=== PATIENT | female | born 1975 | race Caucasian/White ===

== ENCOUNTER 2018-02-11 17:16 | Emergency (ER) | payer SELFPAY ==
[~2018-02-11] VITALS: Ht 154.9 cm; Wt 90.7 kg
[~2018-02-11 17:16] MED LIST: DIAZ5TAB PO; HYDR-3164 PO
[2018-02-11] MEDS ORDERED: MORPHINE SULFATE 10 MG/ML VIAL. IM ONE (17:45)
[2018-02-11 17:51] VITALS: BP 164/92
--- NOTE | 2018-02-11 17:52 | PHYS DOC ---
Past Medical History Past Medical History: Diabetes-Type II, Hypertension, Kidney Stone Past Surgical History: Alcohol Use: Rarely Drug Use: None Adult General Chief Complaint Chief Complaint: ANKLE PROBLEM HPI HPI Patient is a 42 year old female with history of kidney stones, hypertension, who presents today complaining of moderate sharp constant left lateral ankle pain that began on Saturday which is 3 days ago after she fell. Patient states her own dog tripped her on Saturday before she fell. She states she was seen at [facility] had x-rays of the left ankle which had questionable fracture. She states she was supposed to call [facility] to get over read results. She states she called them and she was told to go through medical records to get her documents which may take up to 5 days. She states she has continued to have the pain despite being on hydrocodone. She states the hydrocodone is not working for her. She states she called [facility] orthopedic doctor and they told her the office is closed until next week on Saturday. Review of Systems Review of Systems Constitutional: Denies fever or chills [] Musculoskeletal: Left ankle pain Integument: Denies rash or skin lesions [] Neurologic: Denies headache, focal weakness or sensory changes [] All other systems were reviewed and found to be within normal limits, except as documented in this note. Current Medications Current Medications Current Medications Medications (Trade) Dose Ordered Sig/Andreia Start Time Stop Time Status Last Admin Dose Admin Morphine Sulfate (Morphine Sulfate) 5 mg 1X ONCE 02/11/18 17:45 02/11/18 17:46 DC 02/11/18 18:00 5 MG Allergies Allergies Allergies Coded Allergies Type Severity Reaction Last Updated Verified butalbital Allergy Severe Anaphylaxis 01/22/17 Yes ketorolac Allergy Severe Anaphylaxis 01/22/17 Yes nifedipine Allergy Severe Anaphylaxis 01/22/17 Yes propranolol Allergy Intermediate Anaphylaxis 01/22/17 Yes Physical Exam Physical Exam Constitutional: Well developed, well nourished, no acute distress, non-toxic appearance. [] Skin: Warm, dry, no erythema, no rash. [] Back: No tenderness, no CVA tenderness. [] Extremities: Left ankle with no obvious deformity, trace amount of soft tissue swelling noted on the left lateral ankle. Tenderness on palpation of the ankle diffusely. Patient unable to tolerate any range of motion to the ankle due to pain. +2 left pedal pulse. Cap refill less than 2 seconds to the left toes. Sensation intact to the left lower extremity. Neurologic: Alert and oriented X 3, normal motor function, normal sensory function, no focal deficits noted. [] Psychologic: Affect normal, judgement normal, mood normal. [] Current Patient Data Vital Signs Vital Signs Date Time Temp Pulse Resp B/P (MAP) Pulse Ox O2 Delivery O2 Flow Rate FiO2 02/11/18 17:51 98.6 108 18 164/92 (116) 97 Room Air 98.6 EKG EKG [] Radiology/Procedures Radiology/Procedures []PROCEDURE: ANKLE LEFT 3V History: Trauma, fall, lateral ankle pain. Comparison: None. Findings: AP, lateral, and oblique views of the left ankle. No acute fracture or dislocation is identified. Minimal lateral ankle soft tissue swelling is seen. Impression: No acute osseous traumatic injury identified. Electronically signed by: Gabriele Campos MD (02/11/2018 6:17 PM) [facility] DICTATED and SIGNED BY: GABRIELE CAMPOS MD DATE: 02/11/181815 Course & Med Decision Making Course & Med Decision Making Pertinent Labs and Imaging studies reviewed. (See chart for details) This is a 42-year-old female patient presenting to the ED today complaining of left ankle pain that began on Saturday. She was already seen at [facility], had x-rays done, she states she had a questionable fracture. We'll send him with hydrocodone which she states it's not helping with her pain. Also taking ibuprofen 600 with no relief. Left ankle x-rays interpreted by radiologist are negative for any acute findings. Patient already has an Mirza bandage and air cast for the ankle. Ice elevation encouraged. Follow-up with orthopedic doctor next week. Dragon Disclaimer Dragon Disclaimer This electronic medical record was generated, in whole or in part, using a voice recognition dictation system. Departure Departure Impression: Primary Impression: Fall from standing Additional Impression: Left ankle sprain Disposition: 01 HOME, SELF-CARE Condition: STABLE Referrals: NO PCP (PCP) ESTHER HICKS MD Follow-up in the next 7 days Patient Instructions: Ankle Sprain Additional Instructions: You were evaluated in the emergency room for left ankle pain, and left ankle x- rays are negative for any acute findings. Continue to ice and elevate the extremity. Take the prescribed medications as ordered. Follow-up with your own doctor or the provided orthopedic doctor next week Scripts Diclofenac Sodium (VOLTAREN) 100 Gm Gel..gram. 1 GM TP QID, #100 GM 2 Refills Prov: THOMASJONATHON BURROWS JOY 02/11/18 Problem Qualifiers Primary Impression: Fall from standing Encounter type: subsequent encounter Qualified Codes: W19.XXXD - Unspecified fall, subsequent encounter Additional Impression: Left ankle sprain Encounter type: initial encounter Involved ligament of ankle: unspecified ligament Qualified Codes: S93.402A - Sprain of unspecified ligament of left ankle, initial encounter THOMASJONATHON BURROWS UMBRELLA MENDER Feb 11, 2018 17:51
--- NOTE | 2018-02-11 18:20 | RAD ---
History: Trauma, fall, lateral ankle pain. Comparison: None. Findings: AP, lateral, and oblique views of the left ankle. No acute fracture or dislocation is identified. Minimal lateral ankle soft tissue swelling is seen. Impression: No acute osseous traumatic injury identified. Electronically signed by: Gabriele Campos MD (02/11/2018 6:17 PM) [facility]
[2018-02-11] MEDS ORDERED: DICL100G18 TP (18:35)
== END 2018-02-11 18:42 | disposition home or self-care (01) ==
LOC: ER 17:16
DX: S93.492A Sprain of other ligament of left ankle, initial encounter (principal); E11.9 Type 2 diabetes mellitus without complications; I10 Essential (primary) hypertension; Z87.442 Personal history of urinary calculi; Z98.890 Other specified postprocedural states; Z88.8 Allergy status to other drugs, medicaments and biological substances; W01.0XXA Fall on same level from slipping, tripping and stumbling without subsequent striking against object, initial encounter; Y93.89 Activity, other specified; Y92.89 Other specified places as the place of occurrence of the external cause; Y99.8 Other external cause status
CPT/HCPCS: 73610; 96372; 99283; J2270

== ENCOUNTER 2018-07-19 14:58 | Emergency (ER) | payer SELFPAY ==
[~2018-07-19] VITALS: Ht 154.9 cm; Wt 95.3 kg
[~2018-07-19 14:58] MED LIST changes: +DICL100G18 TP
[2018-07-19 15:08] VITALS: BP 143/105
[2018-07-19] MEDS ORDERED: LIDOCAINE 1% Multi-Dose 20 ML VIAL. INJ ONE (15:45)
[2018-07-19] MEDS ORDERED: HYDROcodone/APAP 5/325MG 1 TAB TABLET PO ONE (15:45)
[2018-07-19] MEDS ORDERED: CEPH-264 PO (15:56)
[2018-07-19] MEDS ORDERED: HYDR-3164 PO (15:56)
[2018-07-19] MEDS ORDERED: SULF1TAB24 PO (15:56)
--- NOTE | 2018-07-19 16:19 | PHYS DOC ---
Past Medical History Past Medical History: Diabetes-Type II, Hypertension, Kidney Stone Past Surgical History: Alcohol Use: Rarely Drug Use: None Adult General Chief Complaint Chief Complaint: ABSCESS HPI HPI 43-year-old female presents to ER with complaints of right groin abscess which is been gradually worsening over the past couple of days- she states onset was one week ago. She denies fever or chills. She denies urinary or vaginal symptoms. She reports she's had similar abscess in left groin which required an I&D. 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 She reports increased pain with walking d/t abd fold rubbing on wound. She reports she has had some swelling in rt labia- denies pain currently in labias/vagina. Review of Systems Review of Systems Constitutional: Denies fever or chills [] Respiratory: Denies cough or shortness of breath [] Cardiovascular: No additional information not addressed in HPI [] GI: Denies abdominal pain, nausea, vomiting, bloody stools or diarrhea [] : Denies dysuria or hematuria. Denies vaginal sxs Musculoskeletal: Denies back pain. Rt groin pain- denies pain radiating down rt leg Integument: Reports abscess rt groin Neurologic: Denies headache, focal weakness or sensory changes [] Endocrine: Denies polyuria or polydipsia [] All other systems were reviewed and found to be within normal limits, except as documented in this note. Current Medications Current Medications Current Medications Medications (Trade) Dose Ordered Sig/Andreia Start Time Stop Time Status Last Admin Dose Admin Acetaminophen/ Hydrocodone Bitart (Lortab 5/325) 1 tab 1X ONCE 07/19/18 15:45 07/19/18 15:46 DC 07/19/18 15:53 1 TAB Lidocaine HCl (Lidocaine 1% 20ml Vial) 20 ml 1X ONCE 07/19/18 15:45 07/19/18 15:46 DC 07/19/18 16:03 20 ML Allergies Allergies Allergies Coded Allergies Type Severity Reaction Last Updated Verified butalbital Allergy Severe Anaphylaxis 01/22/17 Yes ketorolac Allergy Severe Anaphylaxis 01/22/17 Yes nifedipine Allergy Severe Anaphylaxis 01/22/17 Yes shellfish derived Allergy Severe Anaphylaxis 07/19/18 Yes propranolol Allergy Intermediate Anaphylaxis 01/22/17 Yes Physical Exam Physical Exam Constitutional: Well developed, well nourished, no acute distress, non-toxic appearance. [] HENT: Normocephalic, atraumatic, oropharynx moist, no oral exudates, nose normal. [] Eyes: Pupils equal, conjunctiva normal, no discharge. [] Neck: Normal range of motion, no tenderness, supple, no stridor. [] Cardiovascular:Heart rate regular Lungs & Thorax: Bilateral breath sounds clear to auscultation [] Abdomen: Bowel sounds normal, soft/obese, no tenderness : Abscess rt groin with induration/fluctuation- tender on palp. Rt labia induration which pt reports is not acute/nontender. No rash Skin: Warm, dry, no rash. [] Back: No tenderness, no CVA tenderness. [] Extremities: No tenderness, no cyanosis, no clubbing, ROM intact, no edema. 2+ dorsalis pedis/posterior tibial. Steady unassisted gait Neurologic: Alert and oriented X 3, normal motor function, normal sensory function, no focal deficits noted. [] Psychologic: Affect normal, judgement normal, mood normal. [] Abscess Incision and Drainage with irrigation by me: 1610 Location: Rt groin/perigenital area Anesthesia: Local 1% Lidocaine 2 mL Technique: #11 Irrigated. Disrupted loculations w/ instrumentation- moderate amt of purulent/serosanguineous drainage Packin/4" iodoform Complications: Neurovascularly intact post procedure- steady unassisted gait. 2+ bilat. dorsalis pedis Pt tolerated procedure well. 48 hour wound check. Scar minimization instructions given. Current Patient Data Vital Signs Vital Signs Date Time Temp Pulse Resp B/P (MAP) Pulse Ox O2 Delivery O2 Flow Rate FiO2 07/19/18 15:53 20 95 Room Air 07/19/18 15:01 98.1 99 143/105 (118) 98.1 EKG EKG [] Radiology/Procedures Radiology/Procedures [] Course & Med Decision Making Course & Med Decision Making Patient was evaluated in the ER for complaints of right groin abscess. Patient was provided with dose of pain medication while in the ER and had I&D done. Patient reported improved pain following I&D- with drainage she had improvement in swelling at sore site. She remained PMS intact in bilateral lower extremities without incontinence of bowel or bladder. Patient denied any numbness or tingling. Patient had packing placed in the incision and wound care education provided. Patient was advised she needed wound reevaluation in 24 hours for wound recheck as well as packing removal. She was educated on warm compress application. Discussed discharge plan with prescriptions for Keflex and Bactrim DS. Patient will also be provided with pain medication prescription and she was advised on continued use of ibuprofen as needed. Will provide patient with community clinic resource sheet for follow-up purposes. Education provided on signs and symptoms to return to ER for an discharge instructions were discussed. Patient advised if she was unable to get into a clinic she should return to the ER for wound recheck. Pt was encouraged to keep monitoring her BS with hx of DM- she had reported BSs have been stable with last A1c 5.2. Dragon Disclaimer Dragon Disclaimer This electronic medical record was generated, in whole or in part, using a voice recognition dictation system. Departure Departure Impression: Primary Impression: Abscess Disposition: 01 HOME, SELF-CARE Condition: STABLE Referrals: NO PCP (PCP) Patient Instructions: Abscess, Incision and Drainage Additional Instructions: Warm compress to affected area 3-4 times a day. Plenty of fluids. Monitor wound for signs of worsening infection. You need to have the wound reevaluated in 24 hours for packing removal and possibly repacking. Ibuprofen as directed on container as needed for pain relief. Take prescriptions as prescribed and if taking [place] tablets do not drink alcohol or drive. Scripts Cephalexin (KEFLEX) 500 Mg Capsule 1 CAP PO BID, #14 CAP 0 Refills Prov: CHERIE DOSS APRN 07/19/18 Hydrocodone/Apap 5-325 (NORCO 5-325 TABLET) 1 Each Tablet 1 TAB PO PRN Q6HRS PRN for PAIN, #10 TAB 0 Refills No drinking alcohol or driving while taking this medication Prov: CHERIE DOSS APRN 07/19/18 Sulfamethoxazole/Trimethoprim (BACTRIM DS TABLET) 1 Each Tablet 1 TAB PO BID, #14 TAB 0 Refills Prov: CHERIE DOSS APRN 07/19/18 CHERIE DOSS APRN Jul 19, 2018 16:19
== END 2018-07-19 16:32 | disposition home or self-care (01) ==
LOC: ER 14:58
DX: L02.214 Cutaneous abscess of groin (principal); E11.9 Type 2 diabetes mellitus without complications; I10 Essential (primary) hypertension; Z98.890 Other specified postprocedural states; Z88.8 Allergy status to other drugs, medicaments and biological substances; Z91.013 Allergy to seafood
CPT/HCPCS: 10060; 87070; 87071; 87075; 99284

== ENCOUNTER 2018-07-20 14:32 | Emergency (ER) | payer SELFPAY ==
[~2018-07-20] VITALS: Ht 154.9 cm; Wt 95.3 kg
[~2018-07-20 14:32] MED LIST changes: +CEPH-264 PO; +SULF1TAB24 PO
[2018-07-20 14:59] VITALS: BP 162/92
--- NOTE | 2018-07-20 16:04 | PHYS DOC ---
Past Medical History Past Medical History: Diabetes-Type II, Hypertension, Kidney Stone Past Surgical History: Alcohol Use: Rarely Drug Use: None Adult General Chief Complaint Chief Complaint: WOUND CHECK HPI HPI 43-year-old female returns to the ER for wound reevaluation in her right groin. This provider seen the patient yesterday and performed an I&D of abscess in rt groin and started pt on Bactrim. Pt reports pain improved Review of Systems Review of Systems Constitutional: Denies fever or chills [] Respiratory: Denies cough or shortness of breath [] Cardiovascular: No additional information not addressed in HPI [] GI: Denies abdominal pain, nausea, vomiting, bloody stools or diarrhea [] : Denies urinary sxs Musculoskeletal: Denies back pain. Reports rt groin/upper rt leg pain- denies swelling in extremity or skin discoloration Integument: Reports wound rt groin where I&D done yest. Neurologic: Denies focal weakness or sensory changes- reports has diffuse AQU[place] mild in nature- denies any vision changes/dizziness Endocrine: Denies polyuria or polydipsia [] All other systems were reviewed and found to be within normal limits, except as documented in this note. Allergies Allergies Allergies Coded Allergies Type Severity Reaction Last Updated Verified butalbital Allergy Severe Anaphylaxis 01/22/17 Yes ketorolac Allergy Severe Anaphylaxis 01/22/17 Yes nifedipine Allergy Severe Anaphylaxis 01/22/17 Yes shellfish derived Allergy Severe Anaphylaxis 07/19/18 Yes propranolol Allergy Intermediate Anaphylaxis 01/22/17 Yes Physical Exam Physical Exam Constitutional: Well developed, well nourished, no acute distress, non-toxic appearance. [] HENT: Normocephalic, atraumatic, oropharynx moist Eyes: Pupils equal, conjunctiva normal, no discharge. [] Neck: Normal range of motion, supple Cardiovascular:Heart rate regular Lungs & Thorax: Resp. equal/nonlabored Abdomen: Bowel sounds normal, soft, no tenderness Skin: Warm, dry, no erythema, no rash. [] Back: Full ROM Extremities: No cyanosis, no clubbing, ROM intact, no edema. 2+ femoral rt side. I&D site rt groin with packing in place- possible reaction to adhesive in rt groin with redness along site where tape was. Abscess site is soft with no fluctuation. Induration surround wound much improved from yesterday's exam. 2+ dorsalis pedis no pedal edema bilat. Neurologic: Alert and oriented X 3, normal motor function, normal sensory function, no focal deficits noted. [] Psychologic: Affect normal, judgement normal, mood normal. [] Current Patient Data Vital Signs Vital Signs Date Time Temp Pulse Resp B/P (MAP) Pulse Ox O2 Delivery O2 Flow Rate FiO2 07/20/18 14:59 98.5 89 17 162/92 (115) 99 Room Air 98.5 EKG EKG [] Radiology/Procedures Radiology/Procedures [] Course & Med Decision Making Course & Med Decision Making Patient presented to the ER for wound re-evaluation. Patient was seen yesterday in the ER and had I&D with packing placement. Patient was afebrile during this ER visit and in no visible distress. Patient had steady unassisted gait. Patient reports her pain in right groin at abscess site much improved following procedure yesterday. Packing was easily removed no active bleeding or purulent drainage from site. Wound appears much improved from yesterday's presentation. Patient is PMS intact in bilateral lower extremities with full range of motion. Advised patient to continue Bactrim prescription as prescribed. Patient advised on continued application of warm compresses to right groin. Patient advised on use of Tylenol and or her prescribed [place] which she received yesterday with discharge paperwork. Patient was in no visible distress at time of discharge discussion. Patient advised on follow-up with her primary care doctor with any concerns or return to the ER for reevaluation. Dragon Disclaimer Dragon Disclaimer This electronic medical record was generated, in whole or in part, using a voice recognition dictation system. Departure Departure Impression: Primary Impression: Encounter for wound re-check Disposition: HOME, SELF-CARE Condition: STABLE Referrals: NO PCP (PCP) Patient Instructions: Wound Care, [id number], Wound Check Additional Instructions: Follow-up with your primary care physician for further care and wound reevaluation. Finish antibiotic as prescribed and take entire prescription. CHERIE DOSS APRN Jul 20, 2018 16:04
== END 2018-07-20 16:09 | disposition home or self-care (01) ==
LOC: ER 14:32
DX: Z48.01 Encounter for change or removal of surgical wound dressing (principal); E11.9 Type 2 diabetes mellitus without complications; I10 Essential (primary) hypertension; Z98.890 Other specified postprocedural states; Z87.442 Personal history of urinary calculi; Z88.8 Allergy status to other drugs, medicaments and biological substances; Z91.013 Allergy to seafood
CPT/HCPCS: 99283

== ENCOUNTER 2021-07-26 08:29 | Emergency (ER) | payer MEDICAID ==
[~2021-07-26] VITALS: Ht 154.9 cm; Wt 84.1 kg
[~2021-07-26 08:29] MED LIST changes: -DICL100G18 TP; +DICL100G54 TP
--- NOTE | 2021-07-26 08:39 | PHYS DOC ---
Past Medical History Past Medical History: Diabetes-Type II, Hypertension, Kidney Stone Past Surgical History: Smoking Status: Current Every Day Smoker Alcohol Use: Rarely Drug Use: None Adult General Chief Complaint Chief Complaint: NAUSEA/VOMITING/DIARRHEA HPI HPI Patient is a 46 year old female presenting to the emergency department for evaluation of abdominal pain nausea vomiting and diarrhea that has been going on for approximately 5 to 6 days. She says she has pain in her epigastrium and right upper quadrant and has had nonbloody nonbilious emesis. She said she started recently having diarrhea. She denies any recent travel or chemotherapy or antibiotic use she said she was seen at [facility] emergency department and was told that she has sludge and stones in her gallbladder and was referred to outpatient surgery but has not called for follow-up. Patient says she has had 3 the past but no other abdominal surgeries. She has active emesis and appears to be in significant discomfort while I am examining her. Review of Systems Review of Systems Constitutional: Denies fever or chills [] Eyes: Denies change in visual acuity, redness, or eye pain [] HENT: Denies nasal congestion or sore throat [] Respiratory: Denies cough or shortness of breath [] Cardiovascular: No additional information not addressed in HPI [] GI: + abdominal pain, nausea, vomiting, diarrhea [] : Denies dysuria or hematuria [] Musculoskeletal: Denies back pain or joint pain [] Integument: Denies rash or skin lesions [] Neurologic: Denies headache, focal weakness or sensory changes [] All other systems were reviewed and found to be within normal limits, except as documented in this note. Current Medications Current Medications Current Medications Medications (Trade) Dose Ordered Sig/Andreia Start Time Stop Time Status Last Admin Dose Admin Diphenhydramine HCl (Benadryl) 50 mg 1X ONCE 07/26/21 09:30 07/26/21 09:31 DC 07/26/21 09:28 50 MG Info (CONTRAST GIVEN -- Rx MONITORING) 1 each PRN DAILY PRN 07/26/21 09:00 07/28/21 08:59 Iohexol (Omnipaque 300 Mg/ml) 75 ml 1X ONCE 07/26/21 09:30 07/26/21 09:31 DC 07/26/21 09:30 75 ML Morphine Sulfate (Morphine Sulfate) 4 mg 1X PRN 07/26/21 08:45 07/26/21 09:00 4 MG Ondansetron HCl (Zofran) 8 mg 1X ONCE 07/26/21 08:45 07/26/21 08:51 DC 07/26/21 08:58 8 MG Pantoprazole Sodium (PROTONIX VIAL for IV PUSH) 40 mg 1X ONCE 07/26/21 10:45 07/26/21 10:46 DC 07/26/21 11:08 40 MG Prochlorperazine Edisylate (Compazine) 10 mg 1X ONCE 07/26/21 09:30 07/26/21 09:31 DC 07/26/21 09:29 10 MG Sodium Chloride 1,000 ml @ 1,000 mls/hr 1X ONCE 07/26/21 08:45 07/26/21 09:44 DC 07/26/21 08:58 1,000 MLS/HR Allergies Allergies Allergies Coded Allergies Type Severity Reaction Last Updated Verified butalbital Allergy Severe Anaphylaxis 07/26/21 Yes ketorolac Allergy Severe Anaphylaxis 07/26/21 Yes nifedipine Allergy Severe Anaphylaxis 07/26/21 Yes shellfish derived Allergy Severe Anaphylaxis 07/26/21 Yes propranolol Allergy Intermediate Anaphylaxis 07/26/21 Yes Physical Exam Physical Exam Constitutional: Well developed, well nourished, no acute distress, non-toxic appearance. [] HENT: Normocephalic, atraumatic, bilateral external ears normal, oropharynx moist, no oral exudates, nose normal. [] Eyes: PERRLA, EOMI, conjunctiva normal, no discharge. [] Neck: Normal range of motion, no tenderness, supple, no stridor. [] Cardiovascular:Heart rate regular rhythm, no murmur [] Lungs & Thorax: Bilateral breath sounds clear to auscultation [] Abdomen: Bowel sounds normal, soft, + epigastric and RUQ ttp. No rebound or guarding. Skin: Warm, dry, no erythema, no rash. [] Back: No tenderness, no CVA tenderness. [] Extremities: No tenderness, no cyanosis, no clubbing, ROM intact, no edema. [] Neurologic: Alert and oriented X 3, normal motor function, normal sensory function, no focal deficits noted. [] Current Patient Data Vital Signs Vital Signs Date Time Temp Pulse Resp B/P (MAP) Pulse Ox O2 Delivery O2 Flow Rate FiO2 07/26/21 11:07 90 14 139/85 (103) 99 07/26/21 10:19 Room Air 07/26/21 08:30 97.7 97.7 Lab Values Laboratory Tests Test 07/26/21 08:45 07/26/21 11:05 White Blood Count 10.9 x10^3/uL (4.0-11.0) Red Blood Count 4.82 x10^6/uL (3.50-5.40) Hemoglobin 14.9 g/dL (12.0-15.5) Hematocrit 43.8 % (36.0-47.0) Mean Corpuscular Volume 91 fL (79-100) Mean Corpuscular Hemoglobin 31 pg (25-35) Mean Corpuscular Hemoglobin Concent 34 g/dL (31-37) Red Cell Distribution Width 14.8 % (11.5-14.5) H Platelet Count 349 x10^3/uL (140-400) Neutrophils (%) (Auto) 71 % (31-73) Lymphocytes (%) (Auto) 22 % (24-48) L Monocytes (%) (Auto) 5 % (0-9) Eosinophils (%) (Auto) 1 % (0-3) Basophils (%) (Auto) 1 % (0-3) Neutrophils # (Auto) 7.7 x10^3/uL (1.8-7.7) Lymphocytes # (Auto) 2.4 x10^3/uL (1.0-4.8) Monocytes # (Auto) 0.6 x10^3/uL (0.0-1.1) Eosinophils # (Auto) 0.1 x10^3/uL (0.0-0.7) Basophils # (Auto) 0.1 x10^3/uL (0.0-0.2) Sodium Level 138 mmol/L (136-145) Potassium Level 3.9 mmol/L (3.5-5.1) Chloride Level 103 mmol/L (98-107) Carbon Dioxide Level 22 mmol/L (21-32) Anion Gap 13 (6-14) Blood Urea Nitrogen 13 mg/dL (7-20) Creatinine 0.7 mg/dL (0.6-1.0) Estimated GFR (Cockcroft-Gault) 90.9 BUN/Creatinine Ratio 19 (6-20) Glucose Level 134 mg/dL (70-99) H Calcium Level 9.5 mg/dL (8.5-10.1) Total Bilirubin 0.5 mg/dL (0.2-1.0) Aspartate Amino Transferase (AST) 14 U/L (15-37) L Alanine Aminotransferase (ALT) 17 U/L (14-59) Alkaline Phosphatase 92 U/L (46-116) Total Protein 8.9 g/dL (6.4-8.2) H Albumin 4.2 g/dL (3.4-5.0) Albumin/Globulin Ratio 0.9 (1.0-1.7) L Lipase 72 U/L (73-393) L Urine Collection Type Unknown Urine Color (Auto) Colorless Urine Turbidity Clear Urine pH (Auto) 7.0 (<5.0-8.0) Urine Specific [place] 1.050 (1.000-1.030) Urine Protein (Auto) Negative mg/dL (Negative) Urine Glucose (Auto)(UA) Negative mg/dL (Negative) Urine Ketones (Auto) 20 mg/dL (Negative) Urine Blood (Auto) Trace (Negative) Urine Nitrite Negative (Negative) Urine Bilirubin (Auto) Negative (Negative) Urine Urobilinogen (Auto) Normal mg/dL (Normal) Urine Leukocyte Esterase (Auto) Negative (Negative) Urine RBC 1-2 /HPF (0-2) Urine WBC 1-4 /HPF (0-4) Urine Squamous Epithelial Cells Mod /LPF Urine Bacteria 0 /HPF (0-FEW) Urine Opiates Screen Pos (NEG) Urine Methadone Screen Neg (NEG) Urine Barbiturates Neg (NEG) Urine Phencyclidine Screen Neg (NEG) Urine Amphetamine/Methamphetamine Neg (NEG) Urine Benzodiazepines Screen Neg (NEG) Urine Cocaine Screen Neg (NEG) Urine Cannabinoids Screen Pos (NEG) Urine Ethyl Alcohol Neg (NEG) Laboratory Tests 07/26/21 08:45 Laboratory Tests 07/26/21 08:45 EKG EKG [] Radiology/Procedures Radiology/Procedures [] Course & Med Decision Making Course & Med Decision Making I will check labs and imaging treat symptoms and reassess. Patient has negative imaging in the emergency department with no acute surgical pathology. Patient has normal labs with no acute findings. She did have marijuana on her UDS and she does admit that she smokes marijuana but she says it has been a month since she smoked marijuana. I told her that marijuana can cause frequent nausea and vomiting and could be the cause of her symptoms altho ugh she could also have gastritis or an ulcer. Patient's pain and nausea has completely resolved and her repeat abdominal exam is benign with no focal tenderness rebound or guarding. Given patient appears well with normal vital signs benign physical exam work-up and is asking to go home I will discharge her. She will be discharged in stable condition with supportive treatment told to follow-up with GI as an outpatient and come back to emergency department sooner with worsening pain fevers vomiting or other general concerns. Patient aware and agreeable with plan and verbalized understanding the above instructions. Dragon Disclaimer Dragon Disclaimer This electronic medical record was generated, in whole or in part, using a voice recognition dictation system. Departure Departure Impression: Primary Impression: Abdominal pain Additional Impressions: Nausea & vomiting Diarrhea Marijuana use Disposition: HOME / SELF CARE / HOMELESS Condition: STABLE Referrals: NO PCP (PCP) MANUEL MENDEZ MD Patient Instructions: Nausea and Vomiting Scripts Omeprazole (OMEPRAZOLE) 40 Mg Capsule.dr 1 CAP PO DAILY, #30 CAP 0 Refills Prov: TERENCE IRIZARRY DO 07/26/21 Promethazine Hcl (PROMETHAZINE HCL) 25 Mg Supp.rect 25 MG RC Q6H PRN for NAUSEA/VOMITING, #20 SUPP.RECT Prov: TERENCE IRIZARRY DO 07/26/21 Problem Qualifiers Primary Impression: Abdominal pain Abdominal location: generalized Qualified Codes: R10.84 - Generalized abdominal pain Additional Impressions: Nausea & vomiting Vomiting type: unspecified Qualified Codes: R11.2 - Nausea with vomiting, unspecified TREENCE IRIZARRY DO July 26, 2021 08:39
[2021-07-26] MEDS ORDERED: ONDANSETRON PF 4 MG/2 ML VIAL. IVP ONE (08:45)
[2021-07-26] MEDS ORDERED: MORPHINE SULFATE 4 MG/ML INJ. IV PRN (08:45)
[2021-07-26] MEDS ORDERED: IV NORMAL SALINE 1000ML BAG 1,000 ML IV ONE (08:45)
[2021-07-26] MEDS ORDERED: ONDANSETRON PF 4 MG/2 ML VIAL. ONE (08:49)
[2021-07-26] MEDS ORDERED: MORPHINE SULFATE 4 MG/ML INJ. ONE (08:49)
[2021-07-26 08:53] LABS: BASO # 0.1 x10^3/uL (0.0-0.2); BASO % 1 % (0-3); EOS # 0.1 x10^3/uL (0.0-0.7); EOS % 1 % (0-3); HEMATOCRIT 43.8 % (36.0-47.0); HEMOGLOBIN 14.9 g/dL (12.0-15.5); LYMPH # 2.4 x10^3/uL (1.0-4.8); LYMPH % 22 % (24-48); MEAN CORPUSCULAR HEMOGLOBIN 31 pg (25-35); MEAN CORPUSCULAR HGB CONC 34 g/dL (31-37); MEAN CORPUSCULAR VOLUME 91 fL (79-100); MONO # 0.6 x10^3/uL (0.0-1.1); MONO % 5 % (0-9); NEUT # 7.7 x10^3/uL (1.8-7.7); NEUT % 71 % (31-73); PLATELET COUNT 349 x10^3/uL (140-400); RED BLOOD COUNT 4.82 x10^6/uL (3.50-5.40); RED CELL DISTRIBUTION WIDTH 14.8 % (11.5-14.5); WHITE BLOOD COUNT 10.9 x10^3/uL (4.0-11.0)
[2021-07-26] MEDS ORDERED: CONTRAST GIVEN. MC PRN (09:00)
[2021-07-26] MEDS ORDERED: IOHEXOL 300 MG/ML 100ML VIAL. IV ONE ×2 (09:00→09:30)
[2021-07-26 09:08] LABS: CALCIUM 9.5 mg/dL (8.5-10.1); CREATININE 0.7 mg/dL (0.6-1.0); GFR 90.9; POTASSIUM 3.9 mmol/L (3.5-5.1)
[2021-07-26 09:13] LABS: ALBUMIN 4.2 g/dL (3.4-5.0); ALBUMIN/GLOBULIN RATIO 0.9 (1.0-1.7); TOTAL BILIRUBIN 0.5 mg/dL (0.2-1.0); TOTAL PROTEIN 8.9 g/dL (6.4-8.2)
[2021-07-26] MEDS ORDERED: diphenhydrAMINE 50 MG/ML VIAL IVP ONE (09:30)
[2021-07-26] MEDS ORDERED: PROCHLORPERAZINE 10 MG/2 ML VIAL. IV ONE (09:30)
--- NOTE | 2021-07-26 09:44 | RAD ---
CT of the abdomen and pelvis with contrast 07/26/2021 9:35 AM Indication: Epigastric and right upper quadrant pain x5 days Comparison study: None Technique: Multidetector CT imaging of the abdomen and pelvis was performed following the administrat ion of IV contrast. Findings: The partially visualized lung bases demonstrate no acute abnormality. The liver, gallbladder, spleen, bilateral adrenal glands, and pancreas, are grossly unremarkable. Contrast limits evaluation of renal stones. There appear to be 4 small nonobstructing stones in the s uperior pole of the right kidney. Though very early contrast excretion could produce this appearance. Small cyst in the inferior pole the right kidney measuring 1 cm in diameter. The bladder is essentia lly completely decompressed. No evidence of hydronephrosis or ureteral stone is identified. There is no bowel obstruction. No evidence of acute inflammatory change involving the bowel is identified. The appendix is unremarkable. No free fluid or free air seen in the abdomen or pelvis. Uterus is antever gopi. No acute osseous changes are identified. IMPRESSION: 1.No evidence of acute intra-abdominal abnormality is identified. 2. Possible punctate nonobstructing stone superior pole right kidney versus very early contrast excre tion given this is a contrast-enhanced exam. A follow-up noncontrast enhanced abdominal CT could be c onsidered as clinically relevant. CT DOSING PQRS STATEMENT: One or more of the following individualized dose reduction techniques were utilized for this examinat ion: 1. Automated exposure control 2. Adjustment of the mA and/or kV according to patient size 3. Use of iterative reconstruction technique Electronically signed by: Syed Stahl MD (07/26/2021 9:42 AM) [id number]
--- NOTE | 2021-07-26 10:17 | RAD ---
EXAMINATION: US ABDOMEN LIMITED 07/26/2021 9:02 AM INDICATION: Right upper quadrant pain TECHNIQUE: Kruse scale and color Doppler ultrasound images of the right upper quadrant were obtained. COMPARISON: CT abdomen pelvis 07/26/2021. FINDINGS: Liver: The liver is normal in size measuring 19 cm in length. Normal hepatic echogenicity. No focal liver lesion. Gallbladder: The gallbladder is normal in caliber. No cholelithiasis or sludge. The gallbladder wa ll is normal in thickness measuring 2 mm. Bile ducts: The common bile duct is normal measuring 4 mm. No intrahepatic biliary duct dilatation. Right kidney: The right kidney measures 12.3 x 5.2 x 5.4 cm. Inferior pole of the right kidney is par tially obscured by bowel gas. Normal cortical thickness and echogenicity. No hydronephrosis. Other: The inferior vena cava is patent at the level of the liver. The pancreas is normal where visu alized. IMPRESSION: Unremarkable right upper quadrant ultrasound. Electronically signed by: Aleena Morris MD (07/26/2021 10:15 AM) [id number]
[2021-07-26] MEDS ORDERED: PANTOPRAZOLE IV PUSH 40 MG VIAL. IVP ONE (10:45)
[2021-07-26 11:28] LABS: BARBITURATES NEG (NEG); BENZODIAZEPINES NEG (NEG); CANNABINOIDS POS (NEG); COCAINE NEG (NEG); METHADONE NEG (NEG); OPIATES POS (NEG); PHENCYCLIDINE NEG (NEG)
[2021-07-26 11:29] LABS: AMPHETAMINE/METHAMPHETAMINE NEG (NEG)
[2021-07-26 11:38] LABS: BACTERIA,URINE 0 /HPF (0-FEW)
[2021-07-26] MEDS ORDERED: OMEP40CA7 PO (12:00)
[2021-07-26] MEDS ORDERED: PROM25SU33 RC (12:00)
[2021-07-26 12:20] VITALS: BP 139/78
== END 2021-07-26 12:23 | disposition home or self-care (01) ==
LOC: ER 08:29
DX: R10.9 Unspecified abdominal pain (principal); R11.2 Nausea with vomiting, unspecified; R19.7 Diarrhea, unspecified; F12.90 Cannabis use, unspecified, uncomplicated; E11.9 Type 2 diabetes mellitus without complications; I10 Essential (primary) hypertension; F17.200 Nicotine dependence, unspecified, uncomplicated; Z87.442 Personal history of urinary calculi; Z88.4 Allergy status to anesthetic agent; Z88.6 Allergy status to analgesic agent; Z91.013 Allergy to seafood; Z88.8 Allergy status to other drugs, medicaments and biological substances
CPT/HCPCS: 36415; 74177; 76705; 80053; 80307; 81001; 83690; 85025; 96361; 96374; 96375; 99285; C9113; J0780; J1200; J2270; J2405; J7030; Q9967